=== PATIENT | female | born 1930 | race Caucasian/White ===

== ENCOUNTER 2017-03-20 12:58 | Emergency (ER) | payer OTHER ==
[~2017-03-20] VITALS: Ht 157.5 cm; Wt 45.4 kg
--- NOTE | ~2017-03-20 | EKG ---
[place] [address] [address] [email or web address] [address] ELECTROCARDIOGRAM REPORT Name: MAEGAN SORENSEN Room #: [facility]#: [id number] Admission: 03/20/17 Attend Phys: Discharge: 03/20/17 Date of : [birth year] Report #: [id number] THIS REPORT FOR: //name// [facility] ED Test Date: 2017-03-20 Test Time: 13:01:25 Pat Name: MAEGAN SORENSEN Department: Room: Gender: F Speech And Language Clinician: Alley LAUREANO : 1930 Requested By: Félix Han Order Number: [id number] MD: Ricardo Deras Measurements Intervals [place] Rate: 97 P: 66 [place]: 182 QRS: 61 QRSD: 124 T: -10 QT: 369 QTc: 469 Interpretive Statements Sinus rhythm Right bundle branch block Consider left ventricular hypertrophy Compared to ECG 04/18/2016 09:34:14 No significant changes Electronically Signed On 03-22-2017 16:17:29 CDT by Ricardo Deras [email or web address] <ELECTRONICALLY SIGNED> By: Ricardo Deras MD 03/22/17 1617 130 00 Ricardo Deras MD /CHECO
[~2017-03-20 12:58] MED LIST: ALBUTEROL2.5 MG/0.5 INH; ASPIRIN81 M2 PO; DOXYCYCLINE 10100 MG PO; LISINOPRIL20 MG PO; PREDNISONE 10 M10 M1 PO; VENTOLIN HFA INH8 GM INH; ZOCOR20 MG PO
[2017-03-20 13:44] LABS: ABSOLUTE NEUTROPHILS 5.2 thou/uL (1.4-8.2); BASOPHILS 0.6 % (0.0-2.0); EOSINOPHILS 1.1 % (0.0-3.0); HEMATOCRIT 40.3 % (37.0-47.0); HEMOGLOBIN 13.8 gm/dL (12.0-15.0); LYMPHOCYTES 17.8 % (24.0-44.0); MANUAL DIFF NO; MCH 30.4 pg (26.0-34.0); MCHC 34.1 g/dL (28.0-37.0); MONOCYTES 6.5 % (1.0-8.0); PLATELET COUNT 293 thou/uL (150-400); RBC 4.53 mil/uL (4.20-5.00); RDW 14.8 % (10.5-14.5); WBC 7.1 thou/uL (4.0-11.0)
[2017-03-20 13:47] LABS: ANION GAP 3 mmol/L (7-16); BUN 26 mg/dL (7-18); CALCIUM 9.4 mg/dL (8.5-10.1); CHLORIDE 101 mmol/L (98-107); CO2 34 mmol/L (21-32); CREATININE 0.7 mg/dL (0.6-1.0); GLUCOSE 107 mg/dL (74-106); POTASSIUM 4.2 mmol/L (3.5-5.1); SODIUM 138 mmol/L (136-145)
[2017-03-20 13:55] LABS: TROPONIN-I < 0.04 ng/mL (<0.04-0.07)
== END 2017-03-20 14:27 | disposition home or self-care (01) ==
LOC: ER 12:58
PROVIDERS: Emergency Medicine
DX: R07.89 Other chest pain (principal); J44.9 Chronic obstructive pulmonary disease, unspecified; F17.210 Nicotine dependence, cigarettes, uncomplicated; Z95.1 Presence of aortocoronary bypass graft; Z95.5 Presence of coronary angioplasty implant and graft; Z90.49 Acquired absence of other specified parts of digestive tract; Z90.10 Acquired absence of unspecified breast and nipple; Z88.0 Allergy status to penicillin; Z79.82 Long term (current) use of aspirin

== ENCOUNTER → 2017-04-18 | Outpatient (CLI) | payer OTHER ==
--- NOTE | ~2017-04-18 | EEG ---
[facility] [place] [address] ELECTROENCEPHALOGRAM Name: MAEGAN SORENSEN Room #: [facility]#: [id number] Admission: 04/18/17 Attend Phys: Otis Aparicio MD Discharge: Date of : [birth year] Report #: [id number] THIS REPORT FOR: //name// CC: Otis Rivera DATE OF SERVICE: 04/18/2017 DATE OF SERVICE: 04/18/2017 This patient is being evaluated for amnesia. EEG is being done to further evaluate that. EEG was done by placing the electrodes by standard 10-20 system of electrode placement. Both referential and sequential montages were used for recording. Background activity in this patient's EEG is about 11 Hz and 30 microvolt. This is a symmetrical activity. The patient became drowsy and that is associated with bilateral slowing. Photic stimulation was unremarkable. Throughout the record, no active epileptiform activity was noticed. IMPRESSION: This patient's EEG is within normal limits. Thank you very much for this referral. <ELECTRONICALLY SIGNED> By: Otis Aparicio MD 04/20/17 1612 0839 0856 Otis Aparicio MD /nt
== END ==
LOC: MRI 07:44
DX: R41.3 Other amnesia (principal); J32.0 Chronic maxillary sinusitis; R26.9 Unspecified abnormalities of gait and mobility; F17.200 Nicotine dependence, unspecified, uncomplicated

== ENCOUNTER 2017-05-27 15:39 | Inpatient (IN) | payer OTHER ==
[~2017-05-27] VITALS: Ht 142.2 cm; Wt 39.9 kg
--- NOTE | ~2017-05-27 | HC ---
[facility] [address] [place] [address] CONSULTATION Name: MAEGAN SORENSEN Room #: 216-P [facility] IN M.R.#: [id number] Admission: 05/27/17 Attend Phys: Cheo Huerta DO Discharge: Date of : [birth year] Report #: [id number] THIS REPORT FOR: //name// CC: Cheo Rivera INFECTIOUS DISEASES CONSULTATION REASON FOR CONSULTATION: I was asked to evaluate concerning fever and respiratory compromise. HISTORY OF PRESENT ILLNESS: The patient is an 87-year-old with underlying history of COPD who is having progressive shortness of breath over the last week. She initially treated with doxycycline and increased her prednisone from 5 mg to 40 mg a day. She did not improve and was hospitalized because of such. The patient does not remember much in the last several days. She does state that she feels better over the last 24 hours after being hospitalized. There has been no current documented fever. She is on 2 liters of oxygen per nasal cannula. She was sitting up in bed and able to eat her breakfast. She denies any nausea, vomiting or diarrhea. There has been no dysuria. She denies any chest pain, hemoptysis. She has had intermittent cough. She does continue to smoke. ALLERGIES: PENICILLIN. MEDICATIONS: As noted on her MAR including doxycycline, vancomycin, ceftriaxone, prednisone 5 mg a day up to 40 mg a day prior to her admission. PAST MEDICAL HISTORY: COPD, coronary artery disease, coronary artery bypass grafting, mastectomy, cholecystectomy. FAMILY HISTORY: Dementia, hypertension, breast cancer. SOCIAL HISTORY: Smoker. No significant alcohol intake. REVIEW OF SYSTEMS: As noted above. PHYSICAL EXAMINATION: VITAL SIGNS: Afebrile and hemodynamically stable. Is on 2 liters of oxygen per nasal cannula. GENERAL: She was frail, sitting up in bed, in no acute distress. SKIN: Unremarkable. LYMPHATIC: Unremarkable. HEENT: Unremarkable. NECK: Supple, no adenopathy. LUNGS: Decreased breath sounds bilaterally. [facility] [address] [address] CONSULTATION Name: MAEGAN SORENSEN Room #: 216-P [facility] IN ..#: [id number] Admission: 05/27/17 Attend Phys: Cheo Huerta DO Discharge: Date of : [birth year] Report #: [id number] HEART: Regular without murmur. ABDOMEN: Soft and nontender. No hepatosplenomegaly or mass appreciated. EXTREMITIES: Unremarkable with no significant peripheral edema. NEUROLOGIC: Unremarkable. LABORATORY STUDIES: Sodium 139, potassium 3.5, bicarbonate 29, creatinine 0.6. Liver function tests normal. Lactate 2.9 yesterday. Hemoglobin 12.6; WBC 11.2; platelet count 260,000; 89% segs; 5% bands. Blood and urine cultures are pending. Urinalysis had moderate wbc's and bacteria. Chest x-ray, vascular congestion, left lower lobe infiltrate. ABG on 2 liters, pO2 75, PCO2 44, pH 7.45. IMPRESSION: An 87-year-old with underlying chronic obstructive pulmonary disease with community-acquired bronchopneumonia. She has got an infiltrate in the left base. PLAN: I would recommend continuing antibiotic coverage, pending culture results. We will obtain viral respiratory panel as well as urine antigens. She will be on corticosteroids in addition to her antibiotic coverage. <ELECTRONICALLY SIGNED> By: Ed Frey MD 05/29/17 1205 1609 0203 Ed Frey MD /nt
--- NOTE | ~2017-05-27 | HC ---
[facility] [place] [address] [address] CONSULTATION Name: MAEGAN SORENSEN Room #: 216-P [facility] IN M.R.#: [id number] Admission: 05/27/17 Attend Phys: Cheo Huerta DO Discharge: 05/30/17 Date of : [birth year] Report #: [id number] THIS REPORT FOR: //name// CC: Cheo Rivera DATE OF SERVICE: 05/27/2017 REASON FOR CONSULTATION: Exacerbation of COPD. IMPRESSION: 1. Exacerbation of chronic obstructive pulmonary disease, [id number] respiratory failure. 2. Possible pneumonia. 3. History of tobacco use. 4. Encephalopathy. 5. Leukocytosis. 6. Lactic acidosis. PLAN: I agree with corticosteroids, antibiotics, sat monitor. We will check ABG, check for hypercapnic, DVT and ulcer prophylaxis, PT, OT to see in a.m. HISTORY OF PRESENT ILLNESS: An 87-year-old female over the weekend had cough, was started on , which she had at home today, worsening with some confusion, relates doing better now. Positive cough. ALLERGIES: PENICILLIN. HOME MEDICATIONS: Include aspirin, lisinopril, simvastatin, albuterol. PAST SURGICAL HISTORY: Include CABG in 1986, bilateral carotid stenting, auto mastectomies, appendectomy, skin cancer resection, right cataract surgery. FAMILY HISTORY: Positive dementia and breast CA. SOCIAL HISTORY: Positive tobacco. Negative ETOH, lives with family and discussed with them in the room. REVIEW OF SYSTEMS: Cough, shortness of breath. No hemoptysis or hematemesis. No night sweats. PHYSICAL EXAMINATION: VITAL SIGNS: Temperature 98.8, pulse 113, respirations 23, BP . EYES: Negative icterus. NECK: Negative JVD. LUNGS: Coarse wheeze. [facility] [address] [place] [address] CONSULTATION Name: FRANCHESCAMAEGAN Alley Room #: 216-P [facility]#: [id number] Admission: 05/27/17 Attend Phys: Cheo Huerta DO Discharge: 05/30/17 Date of : [birth year] Report #: [id number] HEART: Regular. ABDOMEN: Benign. EXTREMITIES: Showed no edema or cyanosis. LABORATORY DATA: White count 15.5, hemoglobin 15.1, platelets 322. Chest x-ray showed chronic change. BUN 29, creatinine 0.8, lactic 2.1 <ELECTRONICALLY SIGNED> By: Yefri Davila MD 05/30/17 1907 1800 0710 Yefri Davila MD /nt
[2017-05-27 15:40] VITALS: BP 161/70
[2017-05-27] MEDS ORDERED: CLARITIN10 MG PO (15:55)
[2017-05-27] MEDS ORDERED: PEPCID20 MG PO (15:56)
[2017-05-27] MEDS ORDERED: MUCINEX600 MG PO (15:57)
[2017-05-27] MEDS ORDERED: NAMENDA 5 MG TAB5 M1 PO (15:57)
[2017-05-27] MEDS ORDERED: B12INJ IM (15:58)
[2017-05-27 16:13] LABS: HEMATOCRIT 45.5 % (37.0-47.0); HEMOGLOBIN 15.1 gm/dL (12.0-15.0); MCHC 33.1 g/dL (28.0-37.0); MCV 90.5 fL (80.0-100.0); RBC 5.03 mil/uL (4.20-5.00); RDW 14.4 % (10.5-14.5); WBC 15.5 thou/uL (4.0-11.0)
[2017-05-27 16:21] LABS: CALCIUM 9.8 mg/dL (8.5-10.1); CREATININE 0.8 mg/dL (0.6-1.0); POTASSIUM 3.7 mmol/L (3.5-5.1)
[2017-05-27 18:01] VITALS: BP 172/76
[2017-05-27 18:36] VITALS: BP 127/53
[2017-05-27 18:56] VITALS: BP 134/54
[2017-05-27 20:04] LABS: ABG SAMPLE TYPE ARTERIAL; BE(vivo) 2.5 mmol/L (-2 to +3); HCO3 26.8 mmol/L (22.0-26.0); LACTATE 3.05 mmol/L (0.5-2.0); O2(CT) 19.6 mL/dL (15.0-23.0); O2Hb 94.2 % (92.0-98.0); PCO2 40.3 mmHg (35.0-45.0); PO2 75.7 mmHg (80.0-100.0); sO2 95.6 % (92.0-98.0)
[2017-05-27 20:05] LABS: ABG COMMENT NO COMPLICATIONS; STICK SITE R.RADIAL
[2017-05-27 23:17] LABS: URINE BILIRUBIN NEGATIVE (Negative); URINE BLOOD 3+ (Negative); URINE COLOR YELLOW; URINE GLUCOSE-RANDOM* NEGATIVE (Negative); URINE KETONES NEGATIVE (Negative); URINE LEUKOCYTES-REFLEX NEGATIVE (Negative); URINE PROTEIN (DIPSTICK) TRACE (Negative); URINE SPECIFIC GRAVITY 1.015 (1.003-1.035); URINE UROBILINOGEN 0.2 E.U./dl (0.2-1.0)
[2017-05-27 23:30] LABS: SQUAMOUS 4-10 Moderate /LPF (0-3)
[2017-05-27 23:31] LABS: CRYSTALS None Seen /LPF (None Seen); HYALINE CASTS 0-3 Few /LPF (None Seen); TRANSITIONAL EPITHEL CELL 0-3 Few /LPF (None Seen); URINE RBC >20 Many /HPF (0-2); URINE WBC-REFLEX 6-15 Few /HPF (0-5)
[2017-05-28] VITALS: BP 145/73
[2017-05-28 04:00] VITALS: BP 142/88
[2017-05-28 04:09] LABS: MCH 29.9 pg (26.0-34.0); MCHC 33.2 g/dL (28.0-37.0); MCV 90.1 fL (80.0-100.0); PLATELET COUNT 260 thou/uL (150-400); RBC 4.22 mil/uL (4.20-5.00); RDW 14.3 % (10.5-14.5); WBC 11.2 thou/uL (4.0-11.0)
[2017-05-28 04:31] LABS: ALBUMIN 2.6 g/dL (3.4-5.0); CALCIUM 8.7 mg/dL (8.5-10.1); CREATININE 0.6 mg/dL (0.6-1.0); POTASSIUM 3.5 mmol/L (3.5-5.1); TOTAL BILIRUBIN 0.3 mg/dL (<0.1-1.0)
[2017-05-28 04:45] LABS: HEMOGLOBIN 12.6 gm/dL (12.0-15.0)
[2017-05-28 04:46] LABS: MANUAL DIFF YES
[2017-05-28 07:15] VITALS: BP 161/88
[2017-05-28 09:15] LABS: ABSOLUTE NEUTROPHILS 10.5 thou/uL (1.4-8.2); PLATELET ESTIMATE NORMAL; TOTAL CELL COUNT 100
[2017-05-28 11:45] VITALS: BP 153/67
[2017-05-28 14:16] LABS: ABG SAMPLE TYPE ARTERIAL; BE(vivo) 5.2 mmol/L (-2 to +3); LACTATE 1.21 mmol/L (0.5-2.0); O2(CT) 18.2 mL/dL (15.0-23.0); O2Hb 95.2 % (92.0-98.0); PCO2 44.6 mmHg (35.0-45.0); PO2 75.2 mmHg (80.0-100.0); pH 7.446 (7.360-7.450); sO2 95.5 % (92.0-98.0); tCO2 31.4 mmol/L (24.0-30.0)
[2017-05-28 14:17] LABS: STICK SITE L.RADIAL
[2017-05-28 16:00] VITALS: BP 150/68
[2017-05-28 20:30] VITALS: BP 128/84; BP 150/86
[2017-05-29 04:35] VITALS: BP 164/79
[2017-05-29 06:00] LABS: ABSOLUTE NEUTROPHILS 7.7 thou/uL (1.4-8.2); BASOPHILS 0.3 % (0.0-2.0); EOSINOPHILS 0.2 % (0.0-3.0); HEMATOCRIT 38.4 % (37.0-47.0); HEMOGLOBIN 12.9 gm/dL (12.0-15.0); LYMPHOCYTES 11.7 % (24.0-44.0); MCH 30.2 pg (26.0-34.0); MCHC 33.6 g/dL (28.0-37.0); MCV 89.9 fL (80.0-100.0); PLATELET COUNT 255 thou/uL (150-400); POLYS 76.8 % (36.0-66.0); RBC 4.27 mil/uL (4.20-5.00); RDW 14.5 % (10.5-14.5)
[2017-05-29 06:07] LABS: MANUAL DIFF NO
[2017-05-29 06:15] LABS: ALBUMIN 2.5 g/dL (3.4-5.0); CALCIUM 8.6 mg/dL (8.5-10.1); CREATININE 0.5 mg/dL (0.6-1.0); POTASSIUM 3.5 mmol/L (3.5-5.1); TOTAL BILIRUBIN 0.3 mg/dL (<0.1-1.0); TOTAL PROTEIN 5.7 g/dL (6.4-8.2)
[2017-05-29 07:57] VITALS: BP 153/82
[2017-05-29 12:08] VITALS: BP 161/76
[2017-05-29 16:13] VITALS: BP 156/78
[2017-05-29 19:45] VITALS: BP 182/99
[2017-05-30 03:50] LABS: ABSOLUTE NEUTROPHILS 6.6 thou/uL (1.4-8.2); BASOPHILS 0.5 % (0.0-2.0); EOSINOPHILS 0.3 % (0.0-3.0); HEMATOCRIT 40.3 % (37.0-47.0); HEMOGLOBIN 13.3 gm/dL (12.0-15.0); LYMPHOCYTES 16.7 % (24.0-44.0); MCH 29.7 pg (26.0-34.0); MCV 90.1 fL (80.0-100.0); MONOCYTES 11.3 % (1.0-8.0); PLATELET COUNT 291 thou/uL (150-400); POLYS 71.2 % (36.0-66.0); RBC 4.47 mil/uL (4.20-5.00); WBC 9.3 thou/uL (4.0-11.0)
[2017-05-30 04:02] LABS: ALBUMIN 2.6 g/dL (3.4-5.0); CALCIUM 8.7 mg/dL (8.5-10.1); CREATININE 0.5 mg/dL (0.6-1.0); POTASSIUM 3.4 mmol/L (3.5-5.1); TOTAL BILIRUBIN 0.3 mg/dL (<0.1-1.0); TOTAL PROTEIN 5.8 g/dL (6.4-8.2)
[2017-05-30 04:17] LABS: MANUAL DIFF NO
[2017-05-30 04:30] VITALS: BP 177/78
[2017-05-30 08:00] VITALS: BP 150/75
[2017-05-30 09:22] LABS: MAGNESIUM 1.4 mg/dL (1.8-2.4)
[2017-05-30 12:00] VITALS: BP 121/74
[2017-05-30] MEDS ORDERED: PREDNISONE 20 M20 MG PO (12:00)
[2017-05-30] MEDS ORDERED: DUONEB 2.5-0.5 M3 ML INH (12:00)
[2017-05-30 23:07] LABS: INFLUENZA B Negative (Negative); METAPNEUMOVIRUS Negative (Negative)
== END 2017-05-30 17:42 | DRG 871 ==
LOC: ER 15:39 → 2N 17:00 → EROBS 17:00 → 2N 17:30
PROVIDERS: Emergency Medicine; Family Medicine; Internal Medicine Pulmonary Disease; Nurse Practitioner Family
DX: A41.9 Sepsis, unspecified organism (principal); J18.0 Bronchopneumonia, unspecified organism; G93.40 Encephalopathy, unspecified; J96.21 Acute and chronic respiratory failure with hypoxia; J44.1 Chronic obstructive pulmonary disease with (acute) exacerbation; J44.0 Chronic obstructive pulmonary disease with (acute) lower respiratory infection; E46 Unspecified protein-calorie malnutrition; Z68.1 Body mass index [BMI] 19.9 or less, adult; F17.210 Nicotine dependence, cigarettes, uncomplicated; I25.10 Atherosclerotic heart disease of native coronary artery without angina pectoris; E87.6 Hypokalemia; E83.42 Hypomagnesemia; Z90.49 Acquired absence of other specified parts of digestive tract; Z95.5 Presence of coronary angioplasty implant and graft; Z95.1 Presence of aortocoronary bypass graft; Z88.0 Allergy status to penicillin; Z98.41 Cataract extraction status, right eye; Z81.8 Family history of other mental and behavioral disorders; Z80.3 Family history of malignant neoplasm of breast; Z82.49 Family history of ischemic heart disease and other diseases of the circulatory system; Z79.82 Long term (current) use of aspirin; Z79.899 Other long term (current) drug therapy; Z90.13 Acquired absence of bilateral breasts and nipples
CPT/HCPCS: 10081

== ENCOUNTER → 2017-08-13 | Outpatient (CLI) | payer OTHER ==
[~2017-08-13] MED LIST changes: +B12INJ IM; +CLARITIN10 MG PO; +DUONEB 2.5-0.5 M3 ML INH; +MUCINEX600 MG PO; +NAMENDA 5 MG TAB5 M1 PO; +PEPCID20 MG PO; +PREDNISONE 20 M20 MG PO
--- NOTE | ~2017-08-13 | EEG ---
[facility] [place] [address] ELECTROENCEPHALOGRAM Name: MAEGAN SORENSEN Room #: [facility]#: [id number] Admission: 08/13/17 Attend Phys: Otis Aparicio MD Discharge: Date of : [birth year] Report #: [id number] THIS REPORT FOR: //name// CC: Benedicto Caraballo MD [facility] Otis Rivera DATE OF SERVICE: 08/13/2017 This patient is being evaluated for an episode of altered mental status. EEG was done by placing the electrode by standard 10/20 system of electrode placement. Both referential and sequential montages were used for recording. Background activity in this patient's EEG is about 10 Hz and 40 microvolt. This patient became drowsy that is associated with bilateral slowing and vertex sharp waves. Photic stimulation is unremarkable. Throughout the record, no active epileptiform activity was noticed. IMPRESSION: This patient's EEG does not demonstrate any clear-cut epileptiform activity. However, heart appeared to be irregular. It is not clear whether that is old or new. I called the patient's daughter and asked her to contact Dr. Caraballo about the further management of that as they do have the patient's record. <ELECTRONICALLY SIGNED> By: Otis Aparicio MD 08/14/17 1214 0902 0929 Otis Aparicio MD /ruben
== END ==
LOC: NEURO 08:40
DX: I25.5 Ischemic cardiomyopathy (principal); F03.90 Unspecified dementia, unspecified severity, without behavioral disturbance, psychotic disturbance, mood disturbance, and anxiety; R41.82 Altered mental status, unspecified

== ENCOUNTER → 2017-09-16 | Outpatient (CLI) | payer OTHER ==
[~2017-09-16] MED LIST changes: +TRAMADOL 50 MG50 MG PO
[2017-09-16 12:11] LABS: BE(vivo) 4.9 mmol/L (-2 to +3); HCO3 29.8 mmol/L (22.0-26.0); PCO2 45.1 mmHg (35.0-45.0); PO2 60.6 mmHg (80.0-100.0); pH 7.438 (7.360-7.450); sO2 91.9 % (92.0-98.0)
== END ==
LOC: PUL 11:51
PROVIDERS: Internal Medicine Pulmonary Disease
DX: J44.9 Chronic obstructive pulmonary disease, unspecified (principal); G47.33 Obstructive sleep apnea (adult) (pediatric)

== ENCOUNTER 2017-09-20 20:39 | Emergency (ER) | payer OTHER ==
[~2017-09-20] VITALS: Ht 142.2 cm; Wt 38.6 kg
--- NOTE | ~2017-09-20 | EKG ---
[place] [address] [facility] [email or web address] [address] ELECTROCARDIOGRAM REPORT Name: MEKA SORENSENEL Alley Room #: [facility]#: [id number] Admission: 09/20/17 Attend Phys: Discharge: 09/20/17 Date of : [birth year] Report #: [id number] THIS REPORT FOR: //name// [facility] ED Test Date: 2017-09-20 Test Time: 21:06:58 Pat Name: MAEGAN SORENSEN Department: Room: Gender: F Associate Attorney: RIN : 1930 Requested By: Ed Gill Order Number: [id number] MD: Ricardo Deras Measurements Intervals [place] Rate: 95 P: 97 [place]: 223 QRS: 33 QRSD: 131 T: 16 QT: 392 QTc: 493 Interpretive Statements Sinus rhythm Atrial premature complex Prolonged OK interval Left atrial enlargement Right bundle branch block ST depr, consider ischemia, anterolateral lds Compared to ECG 03/20/2017 13:01:25 Atrial premature complex(es) now present First degree AV block now present Atrial abnormality now present Possible ischemia now present Electronically Signed On 09-21-2017 17:14:46 BEATER ENGINEER by Ricardo Deras [email or web address] <ELECTRONICALLY SIGNED> By: Ricardo Deras MD 09/21/17 1714 05 05 Ricardo Deras MD /EPI
[~2017-09-20 20:39] MED LIST changes: -TRAMADOL 50 MG50 MG PO
[2017-09-20] MEDS ORDERED: DOXYCYCLINE 10100 MG PO (22:03)
[2017-09-20] MEDS ORDERED: TRAMADOL 50 MG50 MG PO (22:03)
[2017-09-20 22:29] VITALS: BP 183/89
== END 2017-09-20 22:34 | disposition home or self-care (01) ==
LOC: ER 20:39
DX: S52.591A Other fractures of lower end of right radius, initial encounter for closed fracture (principal); S41.111A Laceration without foreign body of right upper arm, initial encounter; J22 Unspecified acute lower respiratory infection; M81.0 Age-related osteoporosis without current pathological fracture; J44.9 Chronic obstructive pulmonary disease, unspecified; F03.90 Unspecified dementia, unspecified severity, without behavioral disturbance, psychotic disturbance, mood disturbance, and anxiety; Z88.8 Allergy status to other drugs, medicaments and biological substances; Z90.49 Acquired absence of other specified parts of digestive tract; Z88.0 Allergy status to penicillin; F17.210 Nicotine dependence, cigarettes, uncomplicated; W10.8XXA Fall (on) (from) other stairs and steps, initial encounter; Y93.89 Activity, other specified; Y92.89 Other specified places as the place of occurrence of the external cause; Y99.8 Other external cause status

== ENCOUNTER → 2017-09-20 | Outpatient (CLI) | payer OTHER | LOC: SLEEPLAB 08:25 | DX: G47.33 Obstructive sleep apnea (adult) (pediatric) (principal); R06.83 Snoring ==

== ENCOUNTER → 2017-10-04 | Outpatient (CLI) | payer OTHER ==
[~2017-10-04] MED LIST changes: +TRAMADOL 50 MG50 MG PO
== END ==
LOC: SLEEPLAB 13:12
DX: G47.33 Obstructive sleep apnea (adult) (pediatric) (principal); I49.9 Cardiac arrhythmia, unspecified; R06.83 Snoring